=== PATIENT | female | born 1970 | race Caucasian/White ===

== ENCOUNTER 2021-10-18 11:48 | Day surgery (SDC) | payer OTHER ==
[~2021-10-18] VITALS: Ht 167.6 cm; Wt 100.0 kg
[~2021-10-18 11:48] MED LIST: MAGNESIUM30 MG PO; OSTERA TABLET1 EACH PO; VITAMIN E100 UNI2 PO
--- NOTE | 2021-10-18 14:45 | NUR ---
10/18/21 Tracie2 Sabrina Moss 1447-PATIENT ARRIVED TO PACU ON 3L NC PLACED ON 2 RR EVEN. PATIENT AWAKE DROWSY DENIES PAIN OR NAUSEA. IVF INFUSING. ABDOMEN SOFT REPOSTIONS SELF TO BACK. DOZES BACK TO SLEEP.
--- NOTE | 2021-10-22 12:13 | OR ---
[facility] [address] [place], [place] [address] Signed DATE OF OPERATION: 10/18/2021 SURGEON: Hieu Lora MD PREOPERATIVE DIAGNOSIS: Colon screening. POSTOPERATIVE DIAGNOSIS: Normal colon except for diverticulosis of sigmoid. PROCEDURE: Total colonoscopy to cecum. ANESTHESIA: Intravenous sedation; fentanyl 200 mcg and Versed 9 mg, total. INDICATIONS: This 51-year-old woman is a patient of [facility]. She is for screening colonoscopy at this time. She has no family history of colon cancer and no symptoms of bleeding, diarrhea, or constipation. She did undergo cholecystectomy in 2018. She is admitted to undergo screening colonoscopy on the basis of her age. She understands the risks of bleeding, infection, and perforation. FINDINGS: The prep was excellent. Complete colonoscopy was undertaken to the cecum without question. She had diverticula of the sigmoid colon. Remaining colon was otherwise normal. DESCRIPTION OF PROCEDURE: The patient was brought to the endoscopy suite and placed in lateral decubitus position given intravenous sedation to the point of slurred speech and nystagmus. Digital rectal examination was normal. An Olympus video colonoscope was passed into the rectum and manipulated into the sigmoid. Some angulation deformity was noted with the sigmoid diverticulosis. After some amount of time, the scope was switched out for more flexible version and scope reintroduced and scope manipulated beyond the sigmoid and left colon reasonably easily at that point. Scope was ultimately advanced to the cecum. The ileocecal valve and appendiceal orifice were well identified. The cecum was fully intubated. The scope was then withdrawn and examination throughout upon withdrawal of scope showed no sign of Electronically Signed By: HIEU LORA MD 10/22/21 1213 PATIENT NAME: MELVIN LAWTON OPERATIVE REPORT DATE OF : 70 REPORT #: [id number] PHYSICIAN: HIEU LORA MD PCP: HAYDEE BURNS PA-C REPORT IS CONFIDENTIAL AND NOT TO BE RELEASED WITHOUT AUTHORIZATION [facility] [address] [place] [id number] Signed abnormality into the left colon and sigmoid, where diverticula were once again noted. Retroflexed view of the rectum was normal, the scope was removed. The patient was taken to the recovery room in good condition. CONCLUDING DIAGNOSIS: Diverticulosis, no evidence of polyps, cancer, or colitis. PLAN: Recommend repeat colonoscopy in 10 years or sooner if clinically indicated. Maintain high-fiber diet. She will return to the ongoing care of Haydee Burns. MD CORNELIUS Nava/BUFFY /[id number] cc: [facility] Copies: ~ Electronically Signed By: HIEU LORA MD 10/22/21 1213 PATIENT NAME: MELVIN LAWTON OPERATIVE REPORT DATE OF : 70 REPORT #: [id number] PHYSICIAN: HIEU LORA MD PCP: HAYDEE BURNS PA-C REPORT IS CONFIDENTIAL AND NOT TO BE RELEASED WITHOUT AUTHORIZATION
== END 2021-10-18 15:30 | disposition home or self-care (01) ==
LOC: OPS 11:48 → DS 11:48 → OPS 13:00
PROVIDERS: ATTEND Surgery
PROC: 0DJD8ZZ Inspection of Lower Intestinal Tract, Via Natural or Artificial Opening Endoscopic (ICD-10-PCS; principal; 2021-10-18 13:00)
DX: Z12.11 Encounter for screening for malignant neoplasm of colon (principal); K57.30 Diverticulosis of large intestine without perforation or abscess without bleeding; Z90.49 Acquired absence of other specified parts of digestive tract
CPT/HCPCS: 99153; G0500; J0690; J2250; J3010; J7121